=== PATIENT | male | born 1975 | race Two or more races ===

== ENCOUNTER 2020-04-24 06:18 | Day surgery (SDC) | payer OTHER | END 2020-04-24 09:30 | disposition home or self-care (01) | LOC: AMB-ENDOS 06:18 | PROVIDERS: ATTEND Surgery | DX: K31.7 Polyp of stomach and duodenum (principal); K64.2 Third degree hemorrhoids; K64.8 Other hemorrhoids ==

== ENCOUNTER 2020-06-25 06:00 | Day surgery (SDC) | payer OTHER ==
[2020-06-25] MEDS ORDERED: RECTICARE30 GM TOP (08:58)
[2020-06-25] MEDS ORDERED: PERCOCET 5-3251 EACH PO (08:58)
== END 2020-06-25 12:20 | disposition home or self-care (01) ==
LOC: CIR.AMB 06:00
PROVIDERS: ATTEND Surgery
DX: K64.8 Other hemorrhoids (principal); K64.2 Third degree hemorrhoids; Z20.828 Contact with and (suspected) exposure to other viral communicable diseases